=== PATIENT | female | born 1955 | race Caucasian/White ===

== ENCOUNTER 2019-03-31 16:42 | Emergency (ER) | payer BC, OTHER ==
[2019-03-31] MEDS ORDERED: Sodium Chloride 0.9% 10 ML Syringe FLUSH PRN (17:05)
[2019-03-31] MEDS ORDERED: HYDROmorphone 1 MG/ML Syringe IVPUSH ONE (17:05)
[2019-03-31] MEDS ORDERED: Ondansetron 4 MG/2 ML SDV IVPUSH ONE (17:05)
--- NOTE | 2019-03-31 17:08 | EDM.PDOC ---
ED HPI GENERAL MEDICAL PROBLEM - General Chief Complaint: Abdominal Pain Stated Complaint: ABDOMINAL PAIN Time Seen by Provider: 03/31/19 16:58 Source of Information: Reports: Patient, Family History Limitations: Reports: No Limitations - History of Present Illness INITIAL COMMENTS - FREE TEXT/NARRATIVE: She is an unfortunate 63-year-old female who presents with department complaining of left lower quadrant abdominal pain. Patient reports that symptoms started at 0300 this morning and patient was awoken from sleep with pain. Patient reports that she has had similar pain in the past when she had an episode of diverticulitis. Patient denies any fever nausea nausea no vomiting no diarrhea she reports her last bowel movement was 2 days ago and at that time she denied some diarrhea. Abdominal Pain Score (Numeric/FACES): 8 - Related Data Allergies Allergy/AdvReac Type Severity Reaction Status Date / Time ciprofloxacin [From Cipro] Allergy Airway Verified 04/23/16 11:51 Tightness ciprofloxacin HCl Allergy Airway Verified 04/23/16 11:51 [From Cipro] Tightness morphine Allergy Cannot Verified 04/23/16 11:51 Remember Sulfa (Sulfonamide Allergy Airway Verified 04/23/16 11:51 Antibiotics) Tightness Home Meds: Home Meds Levothyroxine Sodium [Synthroid] 75 mcg PO ACBREAKFAST 12/14/14 [History] Olmesartan [Benicar] 40 mg PO DAILY 12/14/14 [History] amLODIPine [Norvasc] 5 mg PO DAILY 12/14/14 [History] Cholecalciferol (Vitamin D3) [Vitamin D3] 1,000 mg PO DAILY 03/16/16 [History] Rosuvastatin [Crestor] 5 mg PO DAILY 03/31/19 [History] Past Medical History Cardiovascular History: Reports: Hypertension Gastrointestinal History: Reports: Other (See Below) Other Gastrointestinal History: diverticulosis Endocrine/Metabolic History: Reports: Hypothyroidism - Past Surgical History Female Surgical History: Reports: Hysterectomy Other Female Surgeries/Procedures: Pt had ureteral surgery at age of 14 to reroute ureters due to continuous UTIs Social & Family History - Caffeine Use Caffeine Use: Reports: Coffee Other Caffeine Use: 1 cup daily - Living Situation & Occupation Living situation: Reports: ED ROS GENERAL - Review of Systems Review Of Systems: See Below Constitutional: Denies: Fever, Chills GI/Abdominal: Reports: Abdominal Pain, Nausea. Denies: Black Stool, Bloody Stool, Vomiting ED EXAM, GI/ABD - Physical Exam Exam: See Below Exam Limited By: No Limitations General Appearance: Alert, WD/WN, Mild Distress Respiratory/Chest: No Respiratory Distress, Lungs Clear, Normal Breath Sounds, No Accessory Muscle Use, Chest Non-Tender Cardiovascular: Normal Peripheral Pulses, Regular Rate, Rhythm, No Edema, No Gallop, No JVD, No Murmur, No Rub GI/Abdominal Exam: Normal Bowel Sounds, Soft, Tender (Moderate left lower quadrant) Back Exam: Normal Inspection, Full Range of Motion, NT Extremities: Normal Inspection, Normal Range of Motion, Non-Tender, Normal Capillary Refill, No Pedal Edema Neurological: Alert Skin Exam: Warm, Dry, No Rash Course - Vital Signs Last Recorded V/S: Last Vital Signs Temp 99.1 F 03/31/19 17:00 Pulse 104 H 03/31/19 17:00 Resp 18 03/31/19 17:00 BP 144/88 H 03/31/19 17:00 Pulse Ox 100 03/31/19 17:00 - Orders/Labs/Meds Orders: Active Orders 24 hr Category Date Time Status UA RFX SERVANDO AND CULT IF INDIC [URIN] Stat Lab 03/31/19 17:05 Ordered Piperacillin/Tazobactam [Piperacil-Tazobact] 3.375 gm Med 03/31/19 20:11 Ordered Sodium Chloride 0.9% [Normal Saline] 100 ml IV ONETIME Sodium Chloride 0.9% [Saline Flush] Med 03/31/19 17:30 Active 10 ml FLUSH ASDIRECTED Sodium Chloride 0.9% [Saline Flush] Med 03/31/19 17:05 Active 10 ml FLUSH ASDIRECTED PRN Saline Lock Insert [OM.PC] Stat Oth 03/31/19 17:05 Ordered Medication Orders Piperacillin Sod/Tazobactam (Sod 3.375 gm/ Sodium Chloride) 100 mls @ 200 mls/ hr IV ONETIME ONE Stop: 03/31/19 20:40 Sodium Chloride (Saline Flush) 10 ml FLUSH ASDIRECTED PRN PRN Reason: Keep Vein Open Last Admin: 03/31/19 17:17 Dose: 10 ml Sodium Chloride (Saline Flush) 10 ml FLUSH ASDIRECTED [facility] Last Admin: 03/31/19 19:02 Dose: 10 ml Labs: Laboratory Tests 03/31/19 03/31/19 Range/Units 17:10 17:10 WBC 8.96 (3.98-10.04) K/mm3 RBC 3.81 L (3.98-5.22) M/mm3 Hgb 12.5 (11.2-15.7) gm/dl Hct 36.3 (34.1-44.9) % MCV 95.3 H (79.4-94.8) fl MCH 32.8 H (25.6-32.2) pg MCHC 34.4 (32.2-35.5) g/dl RDW Std Deviation 42.8 (36.4-46.3) fL Plt Count 234 (182-369) K/mm3 MPV 8.8 L (9.4-12.3) fl Neut % (Auto) 85.6 H (34.0-71.1) % Lymph % (Auto) 7.4 L (19.3-51.7) % [place] % (Auto) 6.3 (4.7-12.5) % Eos % (Auto) 0.4 L (0.7-5.8) Baso % (Auto) 0.2 (0.1-1.2) % Neut # (Auto) 7.67 H (1.56-6.13) K/mm3 Lymph # (Auto) 0.66 L (1.18-3.74) K/mm3 [place] # (Auto) 0.56 H (0.24-0.36) K/mm3 Eos # (Auto) 0.04 (0.04-0.36) K/mm3 Baso # (Auto) 0.02 (0.01-0.08) K/mm3 Manual Slide Review Abnormal smear Sodium 135 L (136-145) mEq/L Potassium 4.5 (3.5-5.1) mEq/L Chloride 100 (98-107) mEq/L Carbon Dioxide 23 (21-32) mEq/L Anion Gap 16.5 H (5-15) BUN 18 (7-18) mg/dL Creatinine 1.1 H (0.55-1.02) mg/dL Est Cr Clr Drug Dosing 51.92 mL/min Estimated GFR (MDRD) 50 (>60) mL/min BUN/Creatinine Ratio 16.4 (14-18) Glucose 101 (80-115) mg/dL Calcium 9.2 (8.5-10.1) mg/dL Total Bilirubin 0.7 (0.2-1.0) mg/dL AST 21 (15-37) U/L ALT 19 (14-59) U/L Alkaline Phosphatase 79 (46-116) U/L Total Protein 8.2 (6.4-8.2) g/dl Albumin 4.2 (3.4-5.0) g/dl Globulin 4.0 gm/dL Albumin/Globulin Ratio 1.1 (1-2) Meds: Medications Generic Name Dose Route Start Last Admin Trade Name Freq PRN Reason Stop Dose Admin Piperacillin Sod/Tazobactam 100 mls @ 200 mls/hr 03/31/19 20:11 Sod 3.375 gm/ Sodium Chloride IV 03/31/19 20:40 ONETIME ONE Sodium Chloride 10 ml 03/31/19 17:05 03/31/19 17:17 Saline Flush FLUSH 10 ml ASDIRECTED PRN Administration Keep Vein Open Sodium Chloride 10 ml 03/31/19 17:30 03/31/19 19:02 Saline Flush FLUSH 10 ml ASDIRECTED [place] Administration Discontinued Medications Generic Name Dose Route Start Last Admin Trade Name Freq PRN Reason Stop Dose Admin Diatrizoate Meglum/Diatrizoate Sod 120 ml 03/31/19 17:18 03/31/19 19:02 Gastrografin 37% PO 03/31/19 17:19 120 ml ONETIME ONE Administration Hydromorphone HCl 1 mg 03/31/19 17:05 03/31/19 17:17 Dilaudid IVPUSH 03/31/19 17:06 1 mg ONETIME ONE Administration Promethazine HCl 25 mg/ Sodium 51 mls @ 100 mls/hr 03/31/19 18:15 03/31/19 18 :26 Chloride IV 03/31/19 18:45 100 mls/hr ONETIME ONE Administration Iopamidol 100 ml 03/31/19 17:18 03/31/19 19:02 Isovue-300 (61%) IVPUSH 03/31/19 17:19 100 ml ONETIME ONE Administration Ondansetron HCl 4 mg 03/31/19 17:05 03/31/19 17:17 Zofran IVPUSH 03/31/19 17:06 4 mg ONETIME ONE Administration - Re-Assessments/Exams Free Text/Narrative Re-Assessment/Exam: 03/31/19 20:05 CT shows an 8.5 x 5.1 cm fluid-filled collection within the pelvis CT abdomen and pelvis report "impression: #1 fluid-filled collection within the right side of the pelvis suspicious for pelvic abscess. Measurements are noted above. Etiology for this finding is not seen but is an interval change from previous exam. #2 no other acute findings seen on CT surgery abdomen and pelvis. " Free Text/Narrative Re-Assessment/Exam: 03/31/19 20:[address] Madrigal who requests transfer to [facility] Free Text/Narrative Re-Assessment/Exam: 03/31/19 20:[address] Bermudez at [facility] in [place] who accepts patient in transfer Departure - Departure Time of Disposition: 20:13 Disposition: DC[facility] to [facility] Condition: Fair Clinical Impression: Intra-abdominal abscess - Discharge Information Referrals: PCP,None [Primary Care Provider] - Forms: ED Department Discharge Sepsis Event Note - Evaluation Sepsis Screening Result: No Definite Risk - Focused Exam Vital Signs: Vital Signs Temp Pulse Resp BP Pulse Ox 03/31/19 17:00 99.1 F 104 H 18 144/88 H 100 Date Exam was Performed: 03/31/19 Time Exam was Performed: 20:13 - My Orders Last 24 Hours: My Active Orders 03/31/19 17:05 UA RFX SERVANDO AND CULT IF INDIC [URIN] Stat Sodium Chloride 0.9% [Saline Flush] 10 ml FLUSH ASDIRECTED PRN Saline Lock Insert [OM.PC] Stat 03/31/19 17:30 Sodium Chloride 0.9% [Saline Flush] 10 ml FLUSH ASDIRECTED 03/31/19 20:11 Piperacillin/Tazobactam [Piperacil-Tazobact] 3.375 gm Sodium Chloride 0.9% [ Normal Saline] 100 ml IV ONETIME - Assessment/Plan Last 24 Hours: My Active Orders 03/31/19 17:05 UA RFX SERVANDO AND CULT IF INDIC [URIN] Stat Sodium Chloride 0.9% [Saline Flush] 10 ml FLUSH ASDIRECTED PRN Saline Lock Insert [OM.PC] Stat 12/19/19 17:30 Sodium Chloride 0.9% [Saline Flush] 10 ml FLUSH ASDIRECTED 03/31/19 20:11 Piperacillin/Tazobactam [Piperacil-Tazobact] 3.375 gm Sodium Chloride 0.9% [ Normal Saline] 100 ml IV ONETIME
[2019-03-31 17:13] VITALS: BP 144/88; PULSE 104
[2019-03-31] MEDS ORDERED: Iopamidol 612 MG/ML 100 ML Bottle IVPUSH ONE (17:18)
[2019-03-31] MEDS ORDERED: Diatrizoate Meglumine/Diatrizoate Sodium 37% 120 ML Bottle PO ONE (17:18)
[2019-03-31] MEDS ORDERED: Sodium Chloride 0.9% 10 ML Syringe FLUSH SCH (17:30)
[2019-03-31] MEDS ORDERED: Promethazine 25 MG in Sodium Chloride 0.9% 50 ML IV ONE (18:15)
--- NOTE | 2019-03-31 19:46 | CT ---
CT abdomen and pelvis Technique: Multiple axial sections were obtained from above the dome of the diaphragm inferiorly through the pubic symphysis. Intravenous and oral contrast was utilized. Delayed images were also obtained through the bladder. Comparison: Previous noncontrast renal stone protocol dated 03/26/16. Limitations: Respiratory motion artifact is present. Findings: Visualized lung bases show nothing acute. Liver contains no focal abnormality. Spleen appears within normal limits. Adrenal glands show no nodule. Kidneys show symmetric contrast enhancement. Cyst is felt to be present within the upper left kidney. This cyst measures around 1.7 cm. Small scar is noted within the right kidney. Aorta shows atherosclerotic calcification without aneurysm. Pancreas shows no discrete abnormality. No retroperitoneal adenopathy or mesenteric abnormalities are seen. Appendix not definitely visualized. Fluid-filled collection is identified within the pelvis measuring about 8.5 cm x 5.1 cm seen. This is not identified on prior exam. This may possibly represent a pelvic abscess. Previous hysterectomy is noted. Delayed images shows contrast within the distal ureters and within the bladder. Degenerative change is seen throughout the spine. Spondylolisthesis is noted at L4-5 measuring 8 mm. This appears to be due to degenerative apophyseal change. Impression: 1. Fluid-filled collection within the right side of the pelvis suspicious for pelvic abscess. Measurements as noted above. Etiology for this finding is not seen but this is an interval change from previous exam. 2. No other acute finding is seen on CT study of the abdomen and pelvis. Diagnostic code #5 This report was dictated in [place] Standard Time
[2019-03-31] MEDS ORDERED: Piperacillin/Tazobactam 3.375 GM in Sodium Chloride 0.9% 100 ML IV ONE (20:11)
== END 2019-03-31 20:47 | disposition hospice, inpatient (51) ==
LOC: JD.ED 16:42
DX: K65.1 Peritoneal abscess (principal); I10 Essential (primary) hypertension; Z88.8 Allergy status to other drugs, medicaments and biological substances; Z88.5 Allergy status to narcotic agent; Z88.2 Allergy status to sulfonamides; Z88.1 Allergy status to other antibiotic agents; Z79.899 Other long term (current) drug therapy; Z90.710 Acquired absence of both cervix and uterus
CPT/HCPCS: 36415; 74177; 80053; 85025; 96365; 96375; 99285; J1170; J2405; J2543; J2550; J7050; Q9963; Q9967; 99284

== ENCOUNTER 2021-12-07 13:26 | Emergency (ER) | payer BC, OTHER ==
[2021-12-07 17:03] LABS: CORONAVIRUS COVID-19 NAA NEGATIVE (NEGATIVE)
[2021-12-07 19:05] VITALS: BP 134/90; PULSE 83
== END 2021-12-07 18:21 ==
LOC: JD.ED 13:26
DX: I63.9 Cerebral infarction, unspecified (principal); I10 Essential (primary) hypertension; E03.9 Hypothyroidism, unspecified; Z88.1 Allergy status to other antibiotic agents; Z88.5 Allergy status to narcotic agent; Z88.2 Allergy status to sulfonamides; Z79.899 Other long term (current) drug therapy; Z79.82 Long term (current) use of aspirin; Z20.822 Contact with and (suspected) exposure to COVID-19
CPT/HCPCS: 0240U; 36415; 70450; 80053; 80307; 82140; 82947; 83605; 85007; 85027; 93005; 99285; 93010

== ENCOUNTER 2022-01-13 07:45 | Emergency (ER) | payer BC ==
[2022-01-13] MEDS ORDERED: diphenhydrAMINE 50 MG/ML SDV IVPUSH ONE (08:47)
[2022-01-13] MEDS ORDERED: methylPREDNISolone Sodium Succinate 125 MG/2 ML SDV IVPUSH ONE (08:47)
[2022-01-13] MEDS ORDERED: Sodium Chloride 0.9% 1,000 ML IV ONE (08:49)
[2022-02-09 10:35] LABS: ESTIMATED GFR 63 mL/min (>60)
== END 2022-01-13 12:23 | disposition home or self-care (01) ==
LOC: JD.ED 07:45
DX: T78.40XA Allergy, unspecified, initial encounter (principal)
CPT/HCPCS: 36415; 71045; 80053; 81001; 84484; 85025; 86140; 93005; 96374; 96375; 99284; J1200; J2930; J7030